=== PATIENT | male | born 1965 | race Caucasian/White ===

== ENCOUNTER 2018-01-25 18:19 | Inpatient (IN) | payer BC ==
[~2018-01-25] VITALS: Ht 165.1 cm; Wt 98.5 kg
[2018-01-25 18:52] VITALS: Ht 165.1 cm; Wt 98.5 kg
[2018-01-25 21:56] LABS: BASOPHIL % 0.4 % (0-2); RED CELL DISTRIBUTION WIDTH 13.4 % (11.5-14.5)
[2018-01-25 22:02] LABS: PLATELET COUNT 54 x10^3mcL (130-400)
[2018-01-25 22:06] LABS: CALCIUM 8.8 mg/dL (8.5-10.1); CARBON DIOXIDE 25.8 mmol/L (21-32); CHLORIDE SERUM 107 mmol/L (98-107); CREATININE SERUM 0.8 mg/dL (0.7-1.3); GFR1 > 60 mL/min; GLUCOSE SERUM 93 mg/dL (74-106); POTASSIUM SERUM 3.5 mmol/L (3.5-5.1); SODIUM SERUM 139 mmol/L (136-145)
[2018-01-25 22:10] LABS: ALBUMIN 3.5 g/dL (3.4-5.0); ALKALINE PHOSPHATASE 107 U/L (46-116); ALT/SGPT 28 U/L (16-63); AST/SGOT 35 U/L (15-37); BILIRUBIN TOTAL 1.94 mg/dL (0.20-1.00); TOTAL PROTEIN, SERUM 6.7 g/dL (6.4-8.2)
[2018-01-25 22:43] LABS: UA SPECIFIC GRAVITY 1.025 (1.005-1.035); microscopic required? YES; urine erythrocyte TRACE (NEGATIVE)
[2018-01-25] MEDS ORDERED: METFORMIN HCL850 MG PO (23:13)
[2018-01-25] MEDS ORDERED: PRINIVIL10 MG PO (23:13)
[2018-01-25] MEDS ORDERED: OMEPRAZOLE40 M1 PO (23:13)
[2018-01-26 00:31] VITALS: BP 110/70
[2018-01-26 04:04] LABS: T3 TOTAL 1.08 ng/mL
[2018-01-26 04:28] LABS: MAGNESIUM 1.8 mg/dL (1.8-2.4); PHOSPHOROUS 3.8 mg/dL (2.5-4.9)
[2018-01-26 04:44] LABS: FREE T4 0.69 ng/dL (0.76-1.46)
[2018-01-26 04:46] LABS: FREE THYROXINE INDEX 1.2 ug/dL (1.4-4.5); T4(THYROXINE) 3.5 ug/dL (4.7-13.3)
[2018-01-26 06:47] LABS: RED CELL DISTRIBUTION WIDTH 13.3 % (11.5-14.5)
[2018-01-26 07:07] LABS: CALCIUM 8.1 mg/dL (8.5-10.1); CARBON DIOXIDE 26.2 mmol/L (21-32); CHLORIDE SERUM 110 mmol/L (98-107); CREATININE SERUM 0.7 mg/dL (0.7-1.3); GFR1 > 60 mL/min; GLUCOSE SERUM 114 mg/dL (74-106); POTASSIUM SERUM 4.2 mmol/L (3.5-5.1); SODIUM SERUM 142 mmol/L (136-145); TRIGLYCERIDES 36 mg/dL (<150)
[2018-01-26 07:12] LABS: CHOLESTEROL 119 mg/dL (<200); HDL CHOLESTEROL 61 mg/dL (40-60)
[2018-01-26 08:14] VITALS: BP 121/68
[2018-01-26 12:27] LABS: SEGMENTED NEUTROPHILS 64 % (37-75)
[2018-01-26 12:28] LABS: ATYPICAL LYMPH 2 %; BAND NEUTROPHIL 0 % (0-10); BASOPHIL 0 % (0-2); MONOCYTE 8 % (0-7); rbc morphology (normal/abnorm) NORMAL (NORMAL)
[2018-01-26 12:29] LABS: PLATELET MORPHOLOGY PLATELETS DECREASED
[2018-01-26 12:32] LABS: PLATELET COUNT 43 x10^3mcL (130-400)
[2018-01-26 13:12] VITALS: BP 104/60
[2018-01-26 18:00] VITALS: BP 99/60
[2018-01-26 22:14] VITALS: BP 103/52
[2018-01-27 06:09] VITALS: BP 97/57
[2018-01-27 06:56] LABS: CALCIUM 7.9 mg/dL (8.5-10.1); CARBON DIOXIDE 28.1 mmol/L (21-32); CHLORIDE SERUM 109 mmol/L (98-107); CREATININE SERUM 0.8 mg/dL (0.7-1.3); GFR1 > 60 mL/min; GLUCOSE SERUM 110 mg/dL (74-106); POTASSIUM SERUM 3.8 mmol/L (3.5-5.1); SODIUM SERUM 143 mmol/L (136-145)
[2018-01-27 08:59] LABS: ATYPICAL LYMPH 2 %; BAND NEUTROPHIL 0 % (0-10); BASOPHIL 0 % (0-2); MONOCYTE 10 % (0-7); SEGMENTED NEUTROPHILS 62 % (37-75)
[2018-01-27 09:00] LABS: PLATELET MORPHOLOGY PLATELETS DECREASED; rbc morphology (normal/abnorm) NORMAL (NORMAL)
[2018-01-27 09:26] VITALS: BP 113/63
[2018-01-27 10:57] LABS: PLATELET COUNT 47 x10^3mcL (130-400)
[2018-01-27] MEDS ORDERED: CLINDAMYCIN HC300 MG PO (10:59)
[2018-01-27] MEDS ORDERED: LAC PO (11:00)
[2018-01-27] MEDS ORDERED: THERA TABLET400 MCG PO (11:01)
[2018-01-27 15:02] VITALS: BP 113/63
[2018-01-27 15:03] VITALS: BP 113/63
== END 2018-01-27 16:05 | disposition home or self-care (01) | DRG 603 ==
LOC: ED 18:19 → DU 23:31 → MU 01-26 08:20
PROVIDERS: Emergency Medicine; Family Medicine
DX: L03.115 Cellulitis of right lower limb (principal); N30.00 Acute cystitis without hematuria; E11.9 Type 2 diabetes mellitus without complications; K21.9 Gastro-esophageal reflux disease without esophagitis; I10 Essential (primary) hypertension; K70.30 Alcoholic cirrhosis of liver without ascites; D69.6 Thrombocytopenia, unspecified; Z79.899 Other long term (current) drug therapy
CPT/HCPCS: 82962; 83880; 84439; 90715; 97110-GP; 97116-GP; 97530-GP; J1885; J2543; J3370; J3490; J7030; Q0092